=== PATIENT | male | born 1990 | race Two or more races ===

== ENCOUNTER 2022-06-09 11:29 | Emergency (ER) | payer OTHER ==
[~2022-06-09] VITALS: Ht 172.7 cm; Wt 95.3 kg
--- NOTE | 2022-06-09 11:30 | NUR ---
BIBS C/O ON & OFF SOB X 2 MONTHS,WORSE X 2 DAYS,TEMPORARY RELIEF WITH ALBUTEROL. PLACED IN BED, AAOX4, BREATHING EVEN AND UNLABORED SATURATING AT 96%RA, BARBARA WHEEZE NOTED ON AUSCULTATION.
[2022-06-09] MEDS ORDERED: ALBUTEROL FS 2.5 MG/3 ML VIAL.NEB CONTNEB ONE (12:00)
[2022-06-09] MEDS ORDERED: predniSONE 20 MG TABLET PO ONE (12:00)
[2022-06-09] MEDS ORDERED: IPRATROPIUM NEB FS 0.5 MG/2.5 ML AMPUL.NEB NEB ONE (12:00)
[2022-06-09] MEDS ORDERED: predniSONE 20 MG TABLET ONE (12:09)
[2022-06-09] MEDS ORDERED: ALBUTEROL FS 2.5 MG/3 ML VIAL.NEB ONE (12:16)
[2022-06-09] MEDS ORDERED: IPRATROPIUM NEB FS 0.5 MG/2.5 ML AMPUL.NEB ONE (12:16)
--- NOTE | 2022-06-09 12:18 | NUR ---
RESP. TECH. AT BEDSIDE FOR BREATHING TREATMENT.
[2022-06-09] MEDS ORDERED: ALBU18HF2 INH (13:14)
[2022-06-09] MEDS ORDERED: PRED50TA PO (13:14)
--- NOTE | 2022-06-09 13:46 | NUR ---
Patient discharged to home in stable condition. Written and verbal after care instructions given. Patient verbalizes understanding of instruction.
[2022-06-09 13:47] VITALS: BP 135/85
== END 2022-06-09 13:46 | disposition home or self-care (01) ==
LOC: ER 11:32
DX: J45.909 Unspecified asthma, uncomplicated (principal); Z60.2 Problems related to living alone
CPT/HCPCS: 99283; 71045; 94799; 94640; J7512